=== PATIENT | male | born 1970 | race American Indian/Alaskan Native ===

== ENCOUNTER 2016-06-13 19:10 | Observation (INO) | payer MEDICAID, OTHER ==
[2016-06-13 19:10] VITALS: BMI 31.8
[2016-06-13] MEDS ORDERED: Aspirin 325 mg EC Tablets PO STA (20:14)
[2016-06-13 20:54] LABS: BASO % 0.5 % (0.0-2.0); EOS # 0.2 K/uL (0.0-0.7); LYMPH # 1.8 K/uL (1.0-4.3); LYMPH % 21.8 % (20.0-40.0); MEAN CORPUSCULAR HEMOGLOBIN 27.3 pg (27.0-31.0); MEAN CORPUSCULAR HGB CONC 31.9 g/dL (33.0-37.0); MEAN PLATELET VOLUME 10.2 fL (7.2-11.7); MONO % 11.9 % (0.0-10.0); NRBC % 0.1 % (0.0-2.0); RED CELL DISTRIBUTION WIDTH 14.6 % (11.5-14.5); WHITE BLOOD COUNT 8.3 K/uL (4.8-10.8)
[2016-06-13 20:57] LABS: CHLORIDE 99 mmol/L (98-107)
[2016-06-13 20:58] LABS: MEAN CELL VOLUME 85.7 fL (80.0-94.0); POTASSIUM 3.8 mmol/L (3.6-5.2); SODIUM 141 mmol/L (132-148)
[2016-06-13 21:00] LABS: AST/SGOT 45 U/L (17-59); GFR AFRICAN-AMERICAN > 60
[2016-06-13 21:01] LABS: ALB/GLOB RATIO 1.4 (1.0-2.1); ALKALINE PHOSPHATASE 67 U/L (38-126); ALT/SGPT 57 U/L (21-72); BLOOD UREA NITROGEN 22 mg/dL (9-20); CALCIUM 8.6 mg/dl (8.6-10.4); CARBON DIOXIDE 30 mmol/L (22-30); GLUCOSE,RANDOM 85 mg/dL (75-110); TOTAL PROTEIN 7.3 g/dL (6.3-8.3)
[2016-06-13] MEDS ORDERED: Aspirin 325 mg EC Tablets PO ONE (21:03)
--- NOTE | 2016-06-13 22:12 | C.PDOC ---
Time Seen by Provider: 06/13/16 20:01 Chief Complaint (Nursing): Chest Pain History Per: Patient Onset/Duration Of Symptoms: Days (3), Intermittent Episodes Current Symptoms Are (Timing): Still Present Severity: Moderate Quality: Tightness, Pressure Modifying Factors: Other Indicated Below Exacerbating Factors: Movement, Exertion Alleviating Factors: Rest Additional History Per: Prior Records Past Medical History Reviewed: Historical Data, Nursing Documentation, Vital Signs Vital Signs: Last Vital Signs Temp 98.2 F 06/13/16 19:20 Pulse 67 06/13/16 19:20 Resp 20 06/13/16 19:20 BP 159/106 H 06/13/16 19:20 Pulse Ox 95 06/13/16 19:20 - Medical History PMH: HTN, Hypercholesterolemia Family History: States: Stroke, Diabetes - Social History Hx Tobacco Use: No Hx Alcohol Use: Yes Hx Substance Use: No - Immunization History Hx Tetanus Toxoid Vaccination: No Hx Influenza Vaccination: Yes Hx Pneumococcal Vaccination: No Review Of Systems Except As Marked, All Systems Reviewed And Found Negative. Constitutional: Negative for: Fever, Weakness Cardiovascular: Positive for: Chest Pain Respiratory: Positive for: Shortness of Breath, Sputum. Negative for: Hemoptysis Gastrointestinal: Negative for: Vomiting, Abdominal Pain Musculoskeletal: Negative for: Neck Pain Skin: Negative for: Rash Neurological: Negative for: Weakness, Numbness, Seizures, Altered Mental Status Physical Exam - Physical Exam Appears: Non-toxic, No Acute Distress Skin: Normal Color, Warm, Dry, No Rash Head: Atraumatic, Normacephalic Eye(s): bilateral: PERRL, EOMI Neck: Normal ROM, Supple Chest: Symmetrical, No Deformity, No Tenderness Cardiovascular: Rhythm Regular Respiratory: Normal Breath Sounds, No Accessory Muscle Use Gastrointestinal/Abdominal: Soft, No Tenderness Back: No CVA Tenderness Extremity: Normal ROM, No Pedal Edema, No Calf Tenderness Neurological/Psych: Oriented x3, Normal Motor, Normal Sensation ED Course And Treatment - Laboratory Results Result Diagrams: 06/13/16 20:47 06/13/16 20:47 Lab Interpretation: No Acute Changes ECG: Interpreted By Me, Viewed By Me ECG Rhythm: Sinus Rhythm, ST/T Changes (T wave inversions in inferior leads), Nonspecific Changes ECG Interpretation: Abnormal Rate From EC O2 Sat by Pulse Oximetry: 95 Pulse Ox Interpretation: Normal - Radiology CXR: Interpreted by Me, Viewed By Me CXR Interpretation: Yes: No Acute Disease Progress - Interventions Interventions:: Observation - Medications Administered Oral: Aspirin - Data Reviewed Data Reviewed: Lab, Diagnostic imaging, EKG, Old records - Patient Status Patient status: Partially improved - Continuity of Care Discussed patient case with:: Patient, ED Nurse, PMD Disposition Discussed With : Jose Toure Comment: He accepted pt on his service and gave admitting orders to the nurse. Doctor Will See Patient In The: Hospital - Disposition Disposition: HOSPITALIZED Disposition Time: 22:13 Condition: FAIR - Clinical Impression Clinical Impression: Chest pain, Abnormal electrocardiography
[2016-06-13] MEDS ORDERED: Pantoprazole 40 mg EC Tab PO STA (22:44)
[2016-06-14 00:49] VITALS: RESP 16
[2016-06-14 06:07] VITALS: BP 119/73; PULSE 79; O2SAT 95
[2016-06-14 06:14] VITALS: TEMP 98.4
--- NOTE | 2016-06-14 07:35 | RAD ---
HISTORY: chest pain COMPARISON: Chest x-ray performed 05/19/15 TECHNIQUE: Chest PA and lateral FINDINGS: LUNGS: No focal consolidation. Please note that chest x-ray has limited sensitivity for the detection of pulmonary masses. PLEURA: No significant pleural effusion identified. No definite pneumothorax . CARDIOVASCULAR: The cardiomediastinal silhouette appears within normal limits of size. OSSEOUS STRUCTURES: No acute osseous abnormality identified. VISUALIZED UPPER ABDOMEN: Unremarkable. OTHER FINDINGS: None. IMPRESSION: No focal consolidation, significant pleural effusion, or definite pneumothorax identified.
[2016-06-14] MEDS ORDERED: Enoxaparin 40 mg Syringe SC SCH (10:00)
[2016-06-14] MEDS ORDERED: Pantoprazole 40 mg EC Tab PO SCH (10:00)
--- NOTE | 2016-06-15 01:00 | CP.PCM.HP ---
History of Present Illness - History of Present Illness History of Present Illness: Cheif complain: chest pain HPI: 46 y/o year old male came in with c/o chest pain, he is known hypertensive. pt says pain is sharp in left chest wall, not radiating to any where., denies any shortness of breath, nausea, vomitting Present on Admission - Present on Admission Any Indicators Present on Admission: No Review of Systems - Review of Systems Systems not reviewed;Unavailable: Acuity of Condition - Constitutional Constitutional: absent: As Per HPI, Anorexia, Chills, Daytime Sleepiness, Excessive Sweating, Fatigue, Fever, Frequent Falls, Headache, Increased Appetite , Lethargy, Malaise, Night Sweats, Snoring, Sleep Apnea, Weight Gain, Weight Loss, Weakness, Other - EENT Eyes: absent: As Per HPI, Blind Spots, Blurred Vision, Change in Vision, Decreased Night Vision, Diplopia, Discharge, Dry Eye, Exophthalmos, Floaters, Irritation, Itchy Eyes, Loss of Peripheral Vision, Pain, Photophobia, Requires Corrective Lenses, Sees Flashes, Spots in Vision, Tunnel Vision, Other Visual Disturbances, Loss of Vision, Other Nose/Mouth/Throat: absent: As Per HPI, Epistaxis, Nasal Congestion, Nasal Discharge, Nasal Obstruction, Nasal Trauma, Nose Pain, Post Nasal Drip, Sinus Pain, Sinus Pressure, Bleeding Gums, Change in Voice, Dental Pain, Dry Mouth, Dysphagia, Halitosis, Hoarsness, Lip Swelling, Mouth Lesions, Mouth Pain, Odynophagia, Sore Throat, Throat Swelling, Tongue Swelling, Facial Pain, Neck Pain, Neck Mass, Other - Cardiovascular Cardiovascular: Chest Pain, Chest Pain at Rest. absent: As Per HPI, Acrocyanosis, Chest Pain with Activity, Claudication, Diaphoresis, Dyspnea, Dyspnea on Exertion, Edema, Irregular Heart Rhythm, Pain Radiating to Arm/Neck/ Jaw, Leg Edema, Leg Ulcers, Lightheadedness, Orthopnea, Palpitations, Paroxysmal Nocturnal Dyspnea, Pedal Edema, Radiating Pain, Rapid Heart Rate, Slow Heart Rate, Syncope, Other - Respiratory Respiratory: absent: As Per HPI, Cough, Dyspnea, Hemoptysis, Dyspnea on Exertion , Wheezing, Snoring, Stridor, Pain on Inspiration, Chest Congestion, Excessive Mucous Production, Change in Mucous Color, Pain with Coughing, Other - Gastrointestinal Gastrointestinal: absent: As Per HPI, Abdominal Pain, Belching, Bloating, Change in Bowel Habits, Change in Stool Character, Coffee Ground Emesis, Constipation, Cramping, Diarrhea, Dyspepsia, Dysphagia, Early Satiety, Excessive Flatus, Fecal Incontinence, Heartburn, Hematemesis, Hematochezia, Loose Stools, Melena, Nausea, Odynophagia, Temesmus, Vomiting, Other - Genitourinary Genitourinary: absent: As Per HPI, Change in Urinary Stream, Difficulty Urinating, Dysuria, Flank Pain, Hematuria, Pyuria, Nocturia, Urinary Incontinence, Urinary Frequency, Urinary Hesitance, Urinary Urgency, Voiding Freq/Small Amts, Freq UTI, Hx Renal/Bladder Calculi, Hx /Renal Surgery, Bladder Distension, Other Past Patient History - Past Medical History & Family History Past Medical History?: Yes - Past Social History Smoking Status: Never Smoked - CARDIAC Hx Hypercholesterolemia: Yes Hx Hypertension: Yes - PULMONARY Hx Respiratory Disorders: No - NEUROLOGICAL Hx Neurological Disorder: No - HEENT Hx HEENT Problems: No - RENAL Hx Chronic Kidney Disease: No - ENDOCRINE/METABOLIC Hx Endocrine Disorders: No - HEMATOLOGICAL/ONCOLOGICAL Hx Blood Disorders: No - MUSCULOSKELETAL/RHEUMATOLOGICAL Hx Musculoskeletal Disorders: No Hx Falls: No - GASTROINTESTINAL Hx Gastrointestinal Disorders: Yes Other/Comment: acid reflux - GENITOURINARY/GYNECOLOGICAL Hx Genitourinary Disorders: No - PSYCHIATRIC Hx Psychophysiologic Disorder: No Hx Substance Use: No - SURGICAL HISTORY Hx Surgeries: No - ANESTHESIA Hx Anesthesia: No Hx Anesthesia Reactions: No Meds Allergies/Adverse Reactions: Allergies Allergy/AdvReac Type Severity Reaction Status Date / Time No Known Allergies Allergy Verified 06/13/16 19:25 Physical Exam - Constitutional Appears: No Acute Distress - Head Exam Head Exam: ATRAUMATIC, NORMAL INSPECTION, NORMOCEPHALIC - Eye Exam Eye Exam: EOMI, Normal appearance, PERRL Pupil Exam: NORMAL ACCOMODATION, PERRL - Respiratory Exam Respiratory Exam: Clear to Auscultation Bilateral, NORMAL BREATHING PATTERN - Cardiovascular Exam Cardiovascular Exam: REGULAR RHYTHM - GI/Abdominal Exam GI & Abdominal Exam: Normal Bowel Sounds, Soft. absent: Tenderness - Back Exam Back exam: NORMAL INSPECTION - Neurological Exam Neurological exam: Alert, CN II-XII Intact, Normal Gait, Oriented x3, Reflexes Normal Results - Vital Signs Recent Vital Signs: Last Vital Signs Temp 98.4 F 06/14/16 04:20 Pulse 79 06/14/16 04:20 Resp 16 06/14/16 04:20 BP 119/73 06/14/16 04:20 Pulse Ox 95 06/14/16 04:20 - Labs Result Diagrams: 06/13/16 20:47 06/13/16 20:47 Labs: Laboratory Results - last 24 hr 06/14/16 06:30 Total Creatine Kinase 375 H CK-MB (Mass) 1.28 Troponin I, Quant 0.0150 Urine Opiates Screen Negative Urine Methadone Screen Negative Ur Barbiturates Screen Negative Ur Phencyclidine Scrn Negative Ur Amphetamines Screen Negative U Benzodiazepines Scrn Negative U Oth Cocaine Metabols Negative U Cannabinoids Screen Negative Assessment & Plan (1) Anxiety Status: Acute (2) Chest discomfort Status: Acute (3) Chest pain Status: Acute
--- NOTE | 2016-06-15 01:07 | CP.PCM.DIS ---
Provider - Provider Date of Admission: 06/13/16 22:14 Attending physician: Jose Toure MD Time Spent in preparation of Discharge (in minutes): 30 Diagnosis - Discharge Diagnosis (1) Anxiety Status: Acute (2) Chest discomfort Status: Acute (3) Chest pain Status: Acute Hospital Course - Lab Results Lab Results: Most Recent Lab Values WBC 8.3 K/uL (4.8-10.8) 06/13/16 20:47 RBC 4.90 Mil/uL (4.40-5.90) 06/13/16 20:47 Hgb 13.4 g/dL (12.0-18.0) 06/13/16 20:47 Hct 42.0 % (35.0-51.0) 06/13/16 20:47 MCV 85.7 fL (80.0-94.0) D 06/13/16 20:47 MCH 27.3 pg (27.0-31.0) 06/13/16 20:47 MCHC 31.9 g/dL (33.0-37.0) L 06/13/16 20:47 RDW 14.6 % (11.5-14.5) H 06/13/16 20:47 Plt Count 187 K/uL (130-400) 06/13/16 20:47 MPV 10.2 fL (7.2-11.7) 06/13/16 20:47 Neut % (Auto) 63.8 % (50.0-75.0) 06/13/16 20:47 Lymph % (Auto) 21.8 % (20.0-40.0) 06/13/16 20:47 Glynn % (Auto) 11.9 % (0.0-10.0) H 06/13/16 20:47 Eos % (Auto) 2.0 % (0.0-4.0) 06/13/16 20:47 Baso % (Auto) 0.5 % (0.0-2.0) 06/13/16 20:47 Neut # 5.3 K/uL (1.8-7.0) 06/13/16 20:47 Lymph # 1.8 K/uL (1.0-4.3) 06/13/16 20:47 Glynn # 1.0 K/uL (0.0-0.8) H 06/13/16 20:47 Eos # 0.2 K/uL (0.0-0.7) 06/13/16 20:47 Baso # 0.0 K/uL (0.0-0.2) 06/13/16 20:47 PT 11.5 SECONDS (9.7-12.2) 06/13/16 20:47 INR 1.0 06/13/16 20:47 APTT 35 SECONDS (21-34) H 06/13/16 20:47 Sodium 141 mmol/L (132-148) 06/13/16 20:47 Potassium 3.8 mmol/L (3.6-5.2) 06/13/16 20:47 Chloride 99 mmol/L (98-107) 06/13/16 20:47 Carbon Dioxide 30 mmol/L (22-30) 06/13/16 20:47 Anion Gap 15 (10-20) 06/13/16 20:47 BUN 22 mg/dL (9-20) H 06/13/16 20:47 Creatinine 1.1 MG/DL (0.8-1.5) 06/13/16 20:47 Est GFR ( Amer) > 60 06/13/16 20:47 Est GFR (Non-Af Amer) > 60 06/13/16 20:47 Random Glucose 85 mg/dL (75-110) 06/13/16 20:47 Calcium 8.6 mg/dl (8.6-10.4) 06/13/16 20:47 Total Bilirubin 1.0 mg/dL (0.2-1.3) 06/13/16 20:47 AST 45 U/L (17-59) 06/13/16 20:47 ALT 57 U/L (21-72) 06/13/16 20:47 Alkaline Phosphatase 67 U/L (38-126) 06/13/16 20:47 Total Creatine Kinase 375 U/L (55-170) H 06/14/16 06:30 CK-MB (Mass) 1.28 ng/mL (0.0-3.38) 06/14/16 06:30 Troponin I < 0.0120 ng/mL (0.00-0.120) 06/13/16 20:47 Troponin I, Quant 0.0150 ng/mL (0.00-0.120) 06/14/16 06:30 NT-Pro-B Natriuret Pep 46.2 pg/mL (0-450) 06/13/16 20:47 Total Protein 7.3 g/dL (6.3-8.3) 06/13/16 20:47 Albumin 4.3 g/dL (3.5-5.0) 06/13/16 20:47 Globulin 3.0 gm/dL (2.2-3.9) 06/13/16 20:47 Albumin/Globulin Ratio 1.4 (1.0-2.1) 06/13/16 20:47 Urine Opiates Screen Negative (NEGATIVE) 06/14/16 06:30 Urine Methadone Screen Negative (NEGATIVE) 06/14/16 06:30 Ur Barbiturates Screen Negative (NEGATIVE) 06/14/16 06:30 Ur Phencyclidine Scrn Negative (NEGATIVE) 06/14/16 06:30 Ur Amphetamines Screen Negative (NEGATIVE) 06/14/16 06:30 U Benzodiazepines Scrn Negative (NEGATIVE) 06/14/16 06:30 U Oth Cocaine Metabols Negative (NEGATIVE) 06/14/16 06:30 U Cannabinoids Screen Negative (NEGATIVE) 06/14/16 06:30 - Hospital Course Hospital Course: Pt is seen and examined, NAD, is for discahrge home chest pain resolved Discharge Exam - Head Exam Head Exam: ATRAUMATIC, NORMAL INSPECTION, NORMOCEPHALIC - Eye Exam Eye Exam: EOMI, Normal appearance, PERRL Pupil Exam: NORMAL ACCOMODATION, PERRL - ENT Exam ENT Exam: Mucous Membranes Moist - Cardiovascular Exam Cardiovascular Exam: REGULAR RHYTHM, +S1, +S2 - GI/Abdominal Exam GI & Abdominal Exam: Normal Bowel Sounds Discharge Plan - Follow Up Plan Condition: FAIR Disposition: AGAINST MEDICAL ADVICE
--- NOTE | 2016-06-15 12:03 | CARD ---
APPROVED REPORT EKG Measurement Heart [id number] <Conclusion> Sinus rhythm with occasional premature ventricular complexes T wave abnormality, consider inferior ischemia Abnormal ECG
--- NOTE | 2016-06-25 23:29 | CARD ---
APPROVED REPORT EKG Measurement Heart [id number] <Conclusion> Normal sinus rhythm with sinus arrhythmia T wave abnormality, consider inferior ischemia Prolonged QT Abnormal ECG
== END 2016-06-14 07:40 | disposition left against medical advice (07) ==
LOC: C.ER 19:10 → C.9E 22:14 → C.9I 23:01
PROVIDERS: ADMIT Internal Medicine; ATTEND Internal Medicine
DX: R07.9 Chest pain, unspecified (principal); F41.9 Anxiety disorder, unspecified; I10 Essential (primary) hypertension
CPT/HCPCS: 71020; 80053; 80324; 80345; 80346; 80349; 80353; 80358; 80361; 83880; 83992; 84484; 85025; 85610; 85730; 87081; 93005; G0378

== ENCOUNTER 2017-02-09 10:10 | Emergency (ER) | payer MEDICAID ==
[2017-02-09 10:11] VITALS: BMI 31.8
[2017-02-09 10:21] VITALS: BP 160/90; PULSE 73; RESP 20; TEMP 97.4; O2SAT 94
[2017-02-09] MEDS ORDERED: Tetracaine 0.5% Ophth (OR ONLY) OD ONE (11:03)
[2017-02-09] MEDS ORDERED: Fluorescein 1 mg Ophthalmic Strip OD ONE (11:04)
[2017-02-09] MEDS ORDERED: Fluorescein 1 mg Ophthalmic Strip ONE (11:12)
[2017-02-09] MEDS ORDERED: Tetracaine 0.5% Ophth (OR ONLY) ONE (11:13)
--- NOTE | 2017-02-09 11:59 | C.PDOC ---
History Of Present Illness Yoseph Calhoun is a 46 y/o male who presents to the ER complaining that he woke up this morning feeling as if something is in his eye. He reports foreign body sensation and pain to the right eye. No discharge from the eye or blurry vision. PMD: Dr. Jose Toure Time Seen by Provider: 02/09/17 11:03 Chief Complaint (Nursing): Eye Problem History Per: Patient History/Exam Limitations: no limitations Onset/Duration Of Symptoms: Days (x 1) Current Symptoms Are (Timing): Still Present Associated Symptoms: Pain, FB Sensation Past Medical History Reviewed: Historical Data, Nursing Documentation, Vital Signs Vital Signs: Last Vital Signs Temp 97.4 F L 02/09/17 10:17 Pulse 73 02/09/17 10:17 Resp 20 02/09/17 10:17 BP 160/90 H 02/09/17 10:17 Pulse Ox 94 L 02/09/17 12:18 - Medical History PMH: HTN, Hypercholesterolemia Denies: Chronic Kidney Disease Surgical History: No Surg Hx Family History: States: Stroke, Diabetes - Social History Hx Tobacco Use: No Hx Alcohol Use: Yes Hx Substance Use: No - Immunization History Hx Tetanus Toxoid Vaccination: Yes Hx Influenza Vaccination: Yes (2016) Hx Pneumococcal Vaccination: Yes Review Of Systems Constitutional: Negative for: Fever Eyes: Positive for: Conjunctivae Inflammation, Other (FB sensation). Negative for: Vision Change (or discharge), Eyelid Inflammation Physical Exam - Physical Exam Appears: Non-toxic, No Acute Distress Skin: Normal Color, Warm, Dry Head: Atraumatic, Normacephalic Eye(s): bilateral: PERRL, EOMI, right: Other (Mild right-sided conjunctival injection), left: Normal Inspection Throat: Normal Neurological/Psych: Oriented x3, Normal Speech ED Course And Treatment O2 Sat by Pulse Oximetry: 94 (RA) Pulse Ox Interpretation: Normal Medical Decision Making Medical Decision Making: Impression: 46 y/o male with fb sensation and pain in right eye On exam, no foreign body noted. Eye irrigated. 1 drop tetracaine and fluorecsien strip applied with small area of uptake on cornea. Plan: Will treat for corneal abrasion. Will d/c with cofloxicin and referral for ophthalmology follow up. Disposition - Disposition Referrals: David Bagley [Staff Provider] - Disposition: HOME/ ROUTINE Disposition Time: 11:58 Condition: STABLE Additional Instructions: Use antibiotic drops as prescribed; use ibuprofen for pain if needed. Follow up with Dr Bagley (eye doctor) on Saturday, Return to ER for any worse symptoms. Do not wear contact lenses. Prescriptions: Ibuprofen [Motrin] 600 mg PO TID #30 tab Ofloxacin Ophth 0.3% [Ocuflox Ophth 0.3%] 1 drop OD Q4 #1 bottle Instructions: Corneal Abrasion (ED) Forms: [facility] (Macedonian), General Discharge Instructions - Clinical Impression Clinical Impression: Corneal abrasion - PA / TAX CREDIT LEASING CONSULTANT / Resident Statement MD/DO has reviewed & agrees with the documentation as recorded. - Scribe Statement The provider has reviewed the documentation as recorded by the Scribe (Elissa Britt) All medical record entries made by the Scribe were at my direction and personally dictated by me. I have reviewed the chart and agree that the record accurately reflects my personal performance of the history, physical exam, medical decision making, and the department course for this patient. I have also personally directed, reviewed, and agree with the discharge instructions and disposition.
== END 2017-02-09 12:10 | disposition home or self-care (01) ==
LOC: C.ER 10:10
DX: S05.01XA Injury of conjunctiva and corneal abrasion without foreign body, right eye, initial encounter (principal); X58.XXXA Exposure to other specified factors, initial encounter; E78.00 Pure hypercholesterolemia, unspecified; I10 Essential (primary) hypertension